=== PATIENT | female | born 1935 | race Caucasian/White ===

== ENCOUNTER 2021-08-26 02:17 | Inpatient (IN) | payer MEDICARE, BC ==
[~2021-08-26] VITALS: Ht 162.6 cm; Wt 70.9 kg
[2021-08-26] MEDS ORDERED: ACET325 PO (02:41)
[2021-08-26] MEDS ORDERED: DOCU100 PO (02:42)
[2021-08-26] MEDS ORDERED: OXYC5 PO (02:43)
[2021-08-26] MEDS ORDERED: ALLO100 PO (02:47)
[2021-08-26] MEDS ORDERED: Amlodipine Bes2.5 MG PO (02:48)
[2021-08-26] MEDS ORDERED: THERA-D2000 UNIT PO (02:49)
[2021-08-26] MEDS ORDERED: CARV25 PT (02:49)
[2021-08-26] MEDS ORDERED: CENTRUM SILVER1 EAC2 PO (02:49)
[2021-08-26] MEDS ORDERED: VOLTAREN ARTHRI20 GM TOP (02:51)
[2021-08-26] MEDS ORDERED: TYLENOL PM EXS1 EACH PO (02:52)
[2021-08-26] MEDS ORDERED: FURO40 PO (02:53)
[2021-08-26] MEDS ORDERED: GABA300 PO (02:53)
[2021-08-26] MEDS ORDERED: EUTHYROX50 MCG PO (02:54)
[2021-08-26] MEDS ORDERED: LIDO700A20 TOP (02:54)
[2021-08-26] MEDS ORDERED: AFRIN15 M1 (02:55)
[2021-08-26] MEDS ORDERED: POTA10T PO (02:56)
[2021-08-26] MEDS ORDERED: PRAM.5 PO (02:57)
[2021-08-26] MEDS ORDERED: PRAV20 PO (02:58)
[2021-08-26] MEDS ORDERED: SITA100T2 PO (02:58)
[2021-08-26] MEDS ORDERED: ZOLP5 PO (02:59)
[2021-08-26 06:14] LABS: BASOPHILS ABSOLUTE AUTO 0.03 K/mm3 (0.00-0.23); BASOPHILS PERCENT AUTO 1 % (0-2); EOSINOPHILS ABSOLUTE AUTO 0.18 K/mm3 (0.00-0.68); EOSINOPHILS PERCENT AUTO 3 % (0-6); Hematocrit 36.3 % (33.0-51.0); Hemoglobin 11.5 g/dL (11.5-16.0); IMMATURE GRAN ABSOLUTE AUTO 0.01 K/mm3 (0.00-0.10); IMMATURE GRAN PERCENT AUTO 0 % (0-1); LYMPHOCYTES ABSOLUTE AUTO 1.85 K/mm3 (0.84-5.20); LYMPHOCYTES PERCENT AUTO 32 % (21-46); MONOCYTES ABSOLUTE AUTO 0.43 K/mm3 (0.16-1.47); MONOCYTES PERCENT AUTO 8 % (4-13); Mean Corpuscular HGB 30.7 pg (26.0-34.0); Mean Corpuscular HGB Conc 31.7 g/dL (31.5-36.5); Mean Corpuscular Volume 97 fL (80-100); Mean Platelet Volume 10.6 fL (9.1-12.4); NEUTROPHILS ABSOLUTE AUTO 3.27 K/mm3 (1.96-9.15); NEUTROPHILS PERCENT AUTO 57 % (41-73); Platelet Count 142 K/mm3 (150-400); RDW Coefficient Variation 12.4 % (11.7-14.2); RDW Standard Deviation 43.9 fL (35.1-46.3); Red Blood Cell Count 3.75 M/mm3 (3.80-5.20); White Blood Cell Count 5.77 K/mm3 (4.00-11.30)
[2021-08-26 06:52] LABS: Albumin, Blood 3.4 g/dL (3.4-5.0); Albumin/Globulin Ratio 1.2 (0.8-1.8); Bilirubin, Total 0.3 mg/dL (0.1-1.0); Bun/Creatinine Ratio 27.2 (12.0-20.0); Calcium, Blood 9.2 mg/dL (8.5-10.1); Creatinine, Blood 1.14 mg/dL (0.40-1.00); Globulin, Blood 2.9 g/dL (2.2-4.0); Potassium, Blood 4.1 mmol/L (3.5-5.5); Total Protein, Blood 6.3 g/dL (6.4-8.2)
--- NOTE | 2021-08-26 07:12 | NUR ---
SHIFT SUMMARY PT WAS A NEW ADMIT DURING THE NIGHT, TRANSFERRED FROM [facility] AND ARRIVING ON THE FLOOR AT 0210. ADMITTED FOR GI BLEED, REPORTING ONE DAY OF BLOODY DIARRHEA. A&O X 4, SBA TO THE BATHROOM. DENIES ANY NAUSEA OR ABD PAIN, THOUGH LUQ IS TENDER WITH PALPATION. VITAL SIGNS STABLE. CONSULT CALLED IN TO GI DOCTOR KARLA. NO OTHER ACUTE CHANGES IN PT CONDITION NOTED SINCE ADMISSION. WILL CONTINUE TO MONITOR AND TREAT PER EMAR UNTIL HAND OFF TO DAY SHIFT RN.
[2021-08-26 11:12] LABS: Hematocrit 36.4 % (33.0-51.0); Hemoglobin 11.9 g/dL (11.5-16.0)
[2021-08-26 17:26] LABS: Hematocrit 33.1 % (33.0-51.0)
--- NOTE | 2021-08-26 18:29 | NUR ---
SHIFT SUMMARY PATIENT IS ALERT AND ORIENTED X4, PLEASANT AND COOPERATIVE WITH CARE. PATIENT HAS NORMAL SALINE INFUSING AT 75MLS PER HOUR. PATIENT HAS BEEN TOLERATING A CLEAR LIQUID DIET, THEY WILL BE NPO AFTER MIDNIGHT FOR EGD TOMORROW 08/27/21. INSULIN COVERAGE PER SLIDING SCALE GIVEN X2. THE PATIENT WORKED WITH THERAPY THIS SHIFT. PATIENT CAN GET UP INDEPENDENTLY WITH IV POLE HELP. PATIENT HAS BEEN HAVING OFF AND ON EPIGASTRIC PAIN THAT SUBSIDES ON ITS OWN SOON AFTER. PATIENT DENIES ANY NEED FOR PAIN MEDS AT THIS TIME. PATIENT IS CURRENTLY IN BED. CALL LIGHT WITHIN REACH. BED IN LOWEST POSITION.
[2021-08-26 23:04] LABS: Hematocrit 35.6 % (33.0-51.0); Hemoglobin 11.9 g/dL (11.5-16.0)
[2021-08-26] MEDS ORDERED: GLIP2.5ER PO ×2 (23:36→23:37)
[2021-08-26] MEDS ORDERED: ESCITALOPRAM OXA5 MG PO (23:39)
[2021-08-27 05:03] LABS: Hematocrit 33.4 % (33.0-51.0); Hemoglobin 11.1 g/dL (11.5-16.0); Mean Corpuscular HGB 30.7 pg (26.0-34.0); Mean Corpuscular HGB Conc 33.2 g/dL (31.5-36.5); Mean Corpuscular Volume 93 fL (80-100); Mean Platelet Volume 10.5 fL (9.1-12.4); Platelet Count 126 K/mm3 (150-400); RDW Standard Deviation 41.2 fL (35.1-46.3); Red Blood Cell Count 3.61 M/mm3 (3.80-5.20); White Blood Cell Count 7.31 K/mm3 (4.00-11.30)
[2021-08-27 05:38] LABS: Anion Gap 6 mmol/L (6-16); Blood Urea Nitrogen 18 mg/dL (8-24); Bun/Creatinine Ratio 20.6 (12.0-20.0); CO2, Blood 24 mmol/L (21-32); Calcium, Blood 8.6 mg/dL (8.5-10.1); Chloride, Blood 115 mmol/L (98-108); Creatinine, Blood 0.87 mg/dL (0.40-1.00); Glomerular Filtration Rate >60 (60-); Glucose, Blood 189 mg/dL (70-99); Potassium, Blood 4.1 mmol/L (3.5-5.5); Sodium, Blood 145 mmol/L (136-145)
--- NOTE | 2021-08-27 05:53 | NUR ---
SHIFT SUMMARY PT IS AN 86 Y/O FEMALE, ADMITTED FOR A GI BLEED. SHE IS A&O X 4, INDEPENDENT IN THE ROOM. PT HAD 2-3 EPISODES OF BLOODY DIARRHEA DURING THE NIGHT, RUST-RED COLORED. NPO SINCE MIDNIGHT IN PREP FOR POSSIBLE SCOPE TODAY. DENIED ANY C/O ABD PAIN OR NAUSEA. VITAL SIGNS STABLE. RECEIVING NS @ 75 ML/HR. NO OTHER ACUTE CHANGES IN PT CONDITION NOTED DURING THE NIGHT. WILL CONTINUE TO MONITOR AND TREAT PER EMAR UNTIL HAND OFF TO DAY SHIFT RN.
--- NOTE | 2021-08-27 11:10 | NUR ---
08/27/21 1110 Shea Valverde History, Chart, Medications and Allergies reviewed before start of procedure. Patient confirms NPO status and agrees with scheduled surgery. 3-LEAD EKG REVIEWED WITH PHYSICIAN PRIOR TO START OF PROCEDURE. MONITOR INTACT WITH CONTINUOUS PULSE OXIMETRY AND INTERMITTENT BP. PATIENT DETERMINED TO BE ASA APPROPRIATE FOR PROPOFOL SEDATION PRIOR TO START OF PROCEDURE BY . Bite Block Placed & REMOVED AT END OF CASE.
[2021-08-27 14:14] LABS: Hematocrit 35.4 % (33.0-51.0); Hemoglobin 11.6 g/dL (11.5-16.0)
--- NOTE | 2021-08-27 17:58 | NUR ---
SHIFT SUMMARY PATIENT IS ALERT AND ORIENTED X4, PLEASANT AND COOPERATIVE WITH CARE. PATIENT HAD EGD DONE TODAY. PATIENT WILL START BOWEL PREP THIS EVENING FOR A COLONOSCOPY TOMORROW AFTERNOON. PATIENT IS CURRENTLY ON A CLEAR LIQUID DIET. PATIENT HAS HAD TWO LOOSE BLOODY STOOLS TODAY. PATIENT'S SLEEPAID MEDICATION AND GABAPENTIN ORDERED THIS AFTERNOON. HYDRALIZINE GIVEN X1 FOR BLOODPRESSURE. 2 UNITS OF INSULIN GIVEN PER SLIDING SCALE AT DINNER. NO DISTRESS NOTED AT THIS TIME. PATIENT CURRENTLY EATING DINNER UP IN RECLINER. CALL LIGHT WITHIN REACH.
[2021-08-28 04:35] LABS: BASOPHILS ABSOLUTE AUTO 0.03 K/mm3 (0.00-0.23); BASOPHILS PERCENT AUTO 1 % (0-2); EOSINOPHILS ABSOLUTE AUTO 0.08 K/mm3 (0.00-0.68); EOSINOPHILS PERCENT AUTO 1 % (0-6); Hematocrit 32.9 % (33.0-51.0); Hemoglobin 10.8 g/dL (11.5-16.0); IMMATURE GRAN ABSOLUTE AUTO 0.03 K/mm3 (0.00-0.10); IMMATURE GRAN PERCENT AUTO 1 % (0-1); LYMPHOCYTES ABSOLUTE AUTO 2.16 K/mm3 (0.84-5.20); LYMPHOCYTES PERCENT AUTO 35 % (21-46); MONOCYTES PERCENT AUTO 10 % (4-13); Mean Corpuscular HGB 30.7 pg (26.0-34.0); Mean Corpuscular HGB Conc 32.8 g/dL (31.5-36.5); Mean Corpuscular Volume 94 fL (80-100); Mean Platelet Volume 10.2 fL (9.1-12.4); NEUTROPHILS PERCENT AUTO 53 % (41-73); Platelet Count 141 K/mm3 (150-400); RDW Coefficient Variation 12.2 % (11.7-14.2); RDW Standard Deviation 42.1 fL (35.1-46.3); Red Blood Cell Count 3.52 M/mm3 (3.80-5.20)
[2021-08-28 04:55] LABS: Bun/Creatinine Ratio 15.8 (12.0-20.0); Calcium, Blood 8.9 mg/dL (8.5-10.1); Creatinine, Blood 0.95 mg/dL (0.40-1.00); Potassium, Blood 3.5 mmol/L (3.5-5.5)
--- NOTE | 2021-08-28 05:17 | NUR ---
SHIFT SUMMARY PT IS AN 86 Y/O FEMALE FEMALE, ADMITTED FOR GI BLEED. SHE IS A&O X 4, INDEPENDENT IN THE ROOM. PT STARTED HER FIRST DOSE OF BOWEL PREP AT HS IN PREPARATION FOR LOWER GI SCOPE TOMORROW. NO C/O ACUTE PAIN OR SOB. PT WAS MEDICATED ONCE FOR NAUSEA AFTER TAKING HER BOWEL PREP. VITAL SIGNS STABLE. NO OTHER ACUTE CHANGES IN PT CONDITION NOTED DURING THE NIGHT. WILL CONTINUE TO MONITOR AND TREAT PER EMAR UNTIL HAND OFF TO DAY SHIFT RN.
--- NOTE | 2021-08-28 14:44 | NUR ---
Lungs clear T/O to Auscultation. History, Chart, Medications and Allergies reviewed before start of procedure. Patient confirms NPO status and agrees with scheduled surgery. Pre-Op teaching done. Pt verbalizes understanding. Patient states colon prep results clear.
--- NOTE | 2021-08-28 14:46 | NUR ---
08/28/21 1446 Dannielle Bower History, Chart, Medications and Allergies reviewed before start of procedure. Patient confirms NPO status and agrees with scheduled surgery. 3-LEAD EKG REVIEWED WITH PHYSICIAN PRIOR TO START OF PROCEDURE. MONITOR INTACT WITH CONTINUOUS PULSE OXIMETRY AND INTERMITTENT BP. PATIENT DETERMINED TO BE ASA APPROPRIATE FOR PROPOFOL SEDATION PRIOR TO START OF PROCEDURE BY .
--- NOTE | 2021-08-28 16:04 | NUR ---
1515 PT TO PRE-OP TO PREP FOR COLONOSCOPY- NO SOLIDS SINCE MN- LAST SIPS OF CLEARS 1250. PT'S STOOLS RUNNING CLEAR S/P PREP
--- NOTE | 2021-08-28 16:05 | NUR ---
1555- PT RETURNED FROM PACU S/P COLONOSCOPY- ROOM AIR NOW, ALERT AND AWAKE. DENINS PAIN OR NAUSEA. FAMILY AT BEDSIDE. VS TAKEN, BP A LITTLE HIGH.
[2021-08-28 16:34] LABS: Hemoglobin 11.4 g/dL (11.5-16.0)
--- NOTE | 2021-08-28 17:33 | NUR ---
CALLED DR LOPEZ INFORMED OF HIGH BLOOD PRESURE- ALSO TO FOLLOW UP WITH H/H AND PT LIKELY TO GO HOME IF SBP REMAINS <180 AND TOLERATES FOOD AND FLUID.
[2021-08-28] MEDS ORDERED: PANT40 PO (17:48)
--- NOTE | 2021-08-28 18:35 | NUR ---
1800- PT DISCHARGED WITH INSTRUCTIONS. BP IMPORVED AFTER HOME MEDS RECEIVED. TOLERATED FOOD AND FLUIDS, NO NAUSEA. HOME WITH BELONGINGS. WHEELCHAIR OUTSIDE FOR PRIVATE CAR [place] HOME.
== END 2021-08-28 17:57 | disposition home or self-care (01) | DRG 379 ==
LOC: MEDS 02:17
PROVIDERS: Family Medicine; Hospitalist; Student in an Organized Health Care Education/Training Program; ADMIT Internal Medicine
PROC: 0DB78ZX Excision of Stomach, Pylorus, Via Natural or Artificial Opening Endoscopic, Diagnostic (ICD-10-PCS; 2021-08-27)
PROC: 0DB68ZX Excision of Stomach, Via Natural or Artificial Opening Endoscopic, Diagnostic (ICD-10-PCS; principal; 2021-08-27 11:00)
PROC: 0DBK8ZZ Excision of Ascending Colon, Via Natural or Artificial Opening Endoscopic (ICD-10-PCS; 2021-08-28)
PROC: 0DJD8ZZ Inspection of Lower Intestinal Tract, Via Natural or Artificial Opening Endoscopic (ICD-10-PCS; 2021-08-28)
DX: K57.31 Diverticulosis of large intestine without perforation or abscess with bleeding (principal); K29.40 Chronic atrophic gastritis without bleeding; K64.4 Residual hemorrhoidal skin tags; K64.8 Other hemorrhoids; I12.9 Hypertensive chronic kidney disease with stage 1 through stage 4 chronic kidney disease, or unspecified chronic kidney disease; E11.22 Type 2 diabetes mellitus with diabetic chronic kidney disease; N18.31 Chronic kidney disease, stage 3a; E78.5 Hyperlipidemia, unspecified; E03.9 Hypothyroidism, unspecified; M10.9 Gout, unspecified; K21.9 Gastro-esophageal reflux disease without esophagitis; E11.42 Type 2 diabetes mellitus with diabetic polyneuropathy; M19.90 Unspecified osteoarthritis, unspecified site; M81.0 Age-related osteoporosis without current pathological fracture; F32.A Depression, unspecified; Z90.49 Acquired absence of other specified parts of digestive tract; Z90.5 Acquired absence of kidney; Z98.890 Other specified postprocedural states; Z88.8 Allergy status to other drugs, medicaments and biological substances; Z79.899 Other long term (current) drug therapy; Z79.84 Long term (current) use of oral hypoglycemic drugs; Z98.51 Tubal ligation status; Z87.891 Personal history of nicotine dependence
CPT/HCPCS: 36415; 80048; 80053; 82947; 83036; 85014; 85018; 85025; 85027; 88305; 88342; 97110; 97161; A9270; C9113; J0360; J2405; J2704; J7030; J7120